=== PATIENT | male | born 1950 | race Caucasian/White ===

== ENCOUNTER → 2018-04-06 | Outpatient (CLI) | payer MEDICARE ==
[~2018-04-06] MED LIST: AMOX500T10 PO; ATOR20TA65 PO; BENZ200C15 PO; CPAP; GUAI1CAP PO; HYDR12.561 PO; LISI-351 PO; LISI-362 PO; LOSA-51 PO; MOM PO; OLME1TAB57 PO; OLME1TAB60 PO; OLME1TAB67 PO; OSE75 PO; OXYC-865 PO; PNEU0.5D3 IM; RIV10 PO; ROS10 PO; VALS1TAB2 PO
[2018-04-06 09:21] LABS: PLATELET COUNT, AUTOMATED 145 K/uL (150-450)
[2018-04-06 10:05] LABS: LDL CHOLESTEROL 53 mg/dl
== END ==
LOC: LAB 08:39
PROVIDERS: ATTEND Internal Medicine
DX: Z12.5 Encounter for screening for malignant neoplasm of prostate (principal); G47.33 Obstructive sleep apnea (adult) (pediatric); I10 Essential (primary) hypertension; E78.5 Hyperlipidemia, unspecified
CPT/HCPCS: 36415; 81001; 84443; 85025; G0103; 82040; 82247; 82310; 82374; 82435; 82465; 82565; 82947; 83718; 84075; 84132; 84153; 84155; 84295; 84450; 84460; 84478; 84520

== ENCOUNTER → 2018-06-25 | Outpatient (CLI) | payer MEDICARE ==
[2018-06-25 08:58] LABS: PLATELET COUNT, AUTOMATED 161 K/uL (150-450)
--- NOTE | 2018-06-25 09:19 | EKG ---
FACILITY: [facility] PATIENT NAME: DEMETRICE SALEH : [id number] MR: [id number] V: [id number] EXAM DATE: ORDERING PHYSICIAN: HARITHA TRUONG TECHNOLOGIST: SONIA Test Reason : PRE OP Blood Pressure : / mmHG Vent. Rate : 050 BPM Atrial Rate : 050 BPM P-R Int : 152 ms QRS Dur : 098 ms QT Int : 420 ms P-R-T Axes : 015 -25 002 degrees QTc Int : 382 ms Sinus bradycardia with sinus arrhythmia Otherwise normal ECG When compared with ECG of 20-AUG-2013 21:42, Vent. rate has decreased BY 39 BPM QT has shortened Confirmed by YOSEF GARCIA ([id number]) on 06/25/2018 7:39:13 PM Referred By: DIONNE Confirmed By:YOSEF GARCIA
== END ==
LOC: LAB 08:42
PROVIDERS: ATTEND Anesthesiology
DX: Z01.812 Encounter for preprocedural laboratory examination (principal); Z01.810 Encounter for preprocedural cardiovascular examination; R00.1 Bradycardia, unspecified; E11.9 Type 2 diabetes mellitus without complications; E07.9 Disorder of thyroid, unspecified
CPT/HCPCS: 36415; 82040; 82247; 82310; 82374; 82435; 82565; 82947; 84075; 84132; 84155; 84295; 84450; 84460; 84520; 85025; 93005

== ENCOUNTER 2018-11-06 01:05 | Day surgery (SDC) | payer MEDICARE ==
[~2018-11-06] VITALS: Ht 172.7 cm; Wt 88.0 kg
[2018-11-06] MEDS ORDERED: NORMOSOL R SOLN(*) 1000 ML BAG 1,000 ML IV PRN (08:45)
[2018-11-06] MEDS ORDERED: LIDOCAINE/SOD BICARB 8.4% SYR ID ONE (08:45)
[2018-11-06] MEDS ORDERED: LIDOCAINE MPF 1% 5 ML VIAL ONE (11:25)
[2018-11-06] MEDS ORDERED: PROPOFOL EMUL(*) 10MG/ML 20 ML 40 ML ONE (11:25)
[2018-11-06 11:42] VITALS: BP 146/86
[2018-11-06 13:00] VITALS: BP 94/60
--- NOTE | 2018-11-06 13:11 | Short(Outpt) Discharge Summary ---
Discharge Summary Reason for Hosp/Final Diag: (1) Encounter for screening colonoscopy Hospital Course & Plan: 68 yo m presented for screening colonoscopy. he tolerated the procedure well and there were no complications. repeat 10 yrs. pt will be discharged home when criteria met. Departure Discharge to: Home Discharge Instructions Home Meds Active Scripts Atorvastatin Calcium (ATORVASTATIN CALCIUM) 20 Mg Tablet, 1 TAB PO QHS, #90 TAB 3 Refills Prov:JAYCEE MELLO MD 04/09/18 Losartan/Hydrochlorothiazide (LOSARTAN-HCTZ 50-12.5 MG TAB) 1 Each Tablet, 1 EACH PO QDAY, #90 TAB 3 Refills Prov:JAYCEE MELLO MD 04/09/18 Cpap (CPAP HOME) Inha, UNIT, #1 Prov:MICHELLE SPENCER APRN [facility]Y OUT PERSON-C 08/12/16 Diet: Regular Activity: As Tolerated Special Instructions: repeat colonoscopy in 10 yrs NIKO FRAUSTO Nov 06, 2018 13:11
[2018-11-06 13:26] VITALS: BP 90/67
[2018-11-06 13:39] VITALS: BP 102/78
[2018-11-06 13:40] VITALS: BP 109/76
--- NOTE | 2018-11-06 15:02 | NUR ---
1300- PT. RECEIVED FROM OR VIA STRETCHER WITH THE SIDERAILS UP. SBAR RECEIVED FROM MELVI AND DR. OCHOA. SEE ADMISSION ASSESSMENT. 1315- PT. STATES THAT HE IS READY TO GO HOME AND I TOLD HIM HE HAS TO STAY IN BED FOR AT LEAST 30 MIN THEN WE CAN SEND HIM HOME. I ASKED IF HE WANTED ANYTHING TO EAT OR DRINK AND HE STATED THAT HE DIDN'T. 1316- PT. RETURNED TO ROOM AIR. 1330- SBAR GIVEN TO DIOR NINO.
== END 2018-11-06 13:50 | disposition home or self-care (01) ==
LOC: OR 01:05
PROVIDERS: ATTEND Surgery
DX: Z12.11 Encounter for screening for malignant neoplasm of colon (principal); K57.30 Diverticulosis of large intestine without perforation or abscess without bleeding
CPT/HCPCS: 00812; G0121; J2001; J2704